=== PATIENT | female | born 1950 | race African-American/Black ===

== ENCOUNTER 2019-03-17 08:28 | Emergency (ER) | payer MEDICARE, OTHER ==
[~2019-03-17] VITALS: Ht 170.2 cm; Wt 82.0 kg
[~2019-03-17 08:28] MED LIST: AMLO5TAB88; ASPI-518 PO; BENA20TA10 PO; ESOM40CA PO; LOSA100T3; LOSA100T32; METO200T48 PO; OMEP20CA14; [UNRECOGNIZED DRUG - CODE] PO
[2019-03-17] MEDS ORDERED: KETOROLAC 60MG/2ML VIAL IM ONE (09:30)
[2019-03-17 11:22] VITALS: BP 150/80
== END 2019-03-17 11:23 | disposition home or self-care (01) ==
LOC: ER 08:28
DX: M79.675 Pain in left toe(s) (principal); Z91.018 Allergy to other foods; Z88.2 Allergy status to sulfonamides; Z79.899 Other long term (current) drug therapy; Z90.49 Acquired absence of other specified parts of digestive tract; Z90.710 Acquired absence of both cervix and uterus
CPT/HCPCS: 73630; 96372; 99283; J1885

== ENCOUNTER 2019-03-29 12:26 | Emergency (ER) | payer MEDICARE, OTHER ==
[~2019-03-29] VITALS: Ht 167.6 cm; Wt 81.0 kg
[2019-03-29 12:50] VITALS: BP 142/81
[2019-03-29] MEDS ORDERED: IBUPROFEN 600MG TABLET PO ONE (14:30)
== END 2019-03-29 16:09 | disposition home or self-care (01) ==
LOC: ER 12:26
DX: M79.675 Pain in left toe(s) (principal); I10 Essential (primary) hypertension; Z90.49 Acquired absence of other specified parts of digestive tract; Z90.710 Acquired absence of both cervix and uterus; Z79.82 Long term (current) use of aspirin; Z79.899 Other long term (current) drug therapy; Z88.2 Allergy status to sulfonamides
CPT/HCPCS: 73630; 99283

== ENCOUNTER 2020-02-11 14:23 | Emergency (ER) | payer MEDICARE, MEDICAID ==
[~2020-02-11] VITALS: Ht 170.2 cm; Wt 86.0 kg
[2020-02-11 18:48] VITALS: BP 143/81
== END 2020-02-11 18:50 | disposition home or self-care (01) ==
LOC: ER 14:40
DX: R07.89 Other chest pain (principal); I10 Essential (primary) hypertension; Z87.442 Personal history of urinary calculi; Z90.49 Acquired absence of other specified parts of digestive tract; Z90.710 Acquired absence of both cervix and uterus; Z88.2 Allergy status to sulfonamides; Z91.018 Allergy to other foods; Z79.899 Other long term (current) drug therapy
CPT/HCPCS: 99281; 99283

== ENCOUNTER 2021-04-30 15:06 | Emergency (ER) | payer MEDICARE, MEDICAID ==
[~2021-04-30] VITALS: Ht 170.2 cm; Wt 100.0 kg
[2021-04-30 15:10] VITALS: BP 134/105
== END 2021-04-30 21:45 | disposition left against medical advice (07) ==
LOC: ER 15:06
DX: Z53.21 Procedure and treatment not carried out due to patient leaving prior to being seen by health care provider (principal)
CPT/HCPCS: 93005; 99283

== ENCOUNTER 2021-08-11 11:51 | Emergency (ER) | payer MEDICARE, MEDICAID ==
[~2021-08-11] VITALS: Ht 167.6 cm; Wt 77.0 kg
[~2021-08-11 11:51] MED LIST changes: +BENA-8 PO; -BENA20TA10 PO
[2021-08-11 12:06] VITALS: BP 146/73
[2021-08-11] MEDS ORDERED: SODIUM CHLORIDE 0.9% 1,000 ML IV ONE (14:15)
[2021-08-11] MEDS ORDERED: MECLIZINE 25MG TABLET PO ONE (14:15)
[2021-08-11 14:27] LABS: HEMATOCRIT. 38.4 % (36.0-48.0); HEMOGLOBIN. 12.9 g/dL (12.0-16.0); MEAN CORPUSCULAR HEMOGLOBIN 30.5 pg (28.0-32.0); MEAN CORPUSCULAR VOLUME 90.8 fL (81.0-99.0); MEAN PLATELET VOLUME 10.9 fl (7.4-10.4); PLATELET 109 x1000/uL (130-400); RED BLOOD CELL COUNT 4.23 mill/uL (4.2-5.4); RED CELL DISTRIBUTION WIDTH 13.3 % (11.6-14.6)
[2021-08-11 14:36] LABS: CHLORIDE 104 mEq/L (98-107)
[2021-08-11 15:07] LABS: PLATELET ESTIMATE DECREASED
[2021-08-11] MEDS ORDERED: NIRM1TAB PO (18:01)
== END 2021-08-11 19:05 | disposition home or self-care (01) ==
LOC: ER 11:51
DX: U07.1 COVID-19 (principal); R42 Dizziness and giddiness; I10 Essential (primary) hypertension; M19.90 Unspecified osteoarthritis, unspecified site; K76.9 Liver disease, unspecified; Z90.49 Acquired absence of other specified parts of digestive tract; Z79.82 Long term (current) use of aspirin; Z91.014 Allergy to mammalian meats; Z88.2 Allergy status to sulfonamides
CPT/HCPCS: 36415; 70450; 71045; 80053; 82962; 83880; 84484; 85025; 87426; 93005; 96360; 99285; C9803; J7030; J8597

== ENCOUNTER 2021-09-09 14:40 | Emergency (ER) | payer MEDICARE, MEDICAID ==
[~2021-09-09] VITALS: Ht 170.2 cm; Wt 82.0 kg
[~2021-09-09 14:40] MED LIST changes: +NIRM1TAB PO
[2021-09-09] MEDS ORDERED: ACETAMINOPHEN WITH CODEINE 300/30MG TABLET PO ONE (17:00)
[2021-09-09] MEDS ORDERED: TETRACAINE 0.5% OPHTH DROPS 4ML BOTHEYE ONE (17:15)
[2021-09-09] MEDS ORDERED: FLUORESCEIN SODIUM 1MG/STRIP BOTHEYE ONE (17:15)
[2021-09-09] MEDS ORDERED: T3 PO (18:14)
[2021-09-09] MEDS ORDERED: POLY10DR RIGHTEYE (18:14)
[2021-09-09 19:40] VITALS: BP 118/78
== END 2021-09-09 19:40 | disposition home or self-care (01) ==
LOC: ER 14:40
DX: M17.11 Unilateral primary osteoarthritis, right knee (principal); H10.021 Other mucopurulent conjunctivitis, right eye; I10 Essential (primary) hypertension; Z79.82 Long term (current) use of aspirin; Z91.018 Allergy to other foods; Z88.2 Allergy status to sulfonamides
CPT/HCPCS: 73562; 99283

== ENCOUNTER 2024-02-24 13:17 | Emergency (ER) | payer MEDICARE, MEDICAID ==
[~2024-02-24] VITALS: Ht 170.2 cm; Wt 77.0 kg
[~2024-02-24 13:17] MED LIST changes: +LOSA-415; -LOSA100T3; -LOSA100T32; +LOSA100T33; +METO200T34 PO; -METO200T48 PO; +POLY10DR RIGHTEYE; +T3 PO
[2024-02-24 13:24] VITALS: O2SAT 98
[2024-02-24] MEDS: ACETAMINOPHEN 325MG TABLET PO ONE (15:00)
[2024-02-24] MEDS ORDERED: ONDANSETRON 4MG ODT PO ONE (15:15)
[2024-02-24] MEDS ORDERED: ACETAMINOPHEN 325MG TABLET PO ONE (15:15)
[2024-02-24] MEDS: LIDOCAINE 5% PATCH TOP SCH (17:00)
[2024-02-24] MEDS: ACETAMINOPHEN 325MG TABLET PO NR (17:02)
[2024-02-24] MEDS ORDERED: TOPUD MT (17:43)
[2024-02-24] MEDS ORDERED: LIDO700A15 TP (17:43)
[2024-02-24 18:24] VITALS: BP 143/78; PULSE 67; RESP 16; TEMP 37.11408; O2SAT 99
== END 2024-02-24 18:32 | disposition home or self-care (01) ==
LOC: ER 13:36
DX: M48.02 Spinal stenosis, cervical region (principal); M48.061 Spinal stenosis, lumbar region without neurogenic claudication; I10 Essential (primary) hypertension; Z79.82 Long term (current) use of aspirin; Z79.899 Other long term (current) drug therapy; Z88.2 Allergy status to sulfonamides
CPT/HCPCS: 72131; 73030; 73502; 99284

== ENCOUNTER 2024-07-28 13:49 | Emergency (ER) | payer MEDICARE, MEDICAID ==
[~2024-07-28] VITALS: Ht 165.1 cm; Wt 87.0 kg
[~2024-07-28 13:49] MED LIST changes: +LIDO-53 TP; +TOPUD MT
[2024-07-28 14:09] VITALS: TEMP 36.8; O2SAT 100
[2024-07-28] MEDS ORDERED: KETOROLAC 30MG/ML VIAL IM ONE (16:15)
[2024-07-28 16:52] LABS: BASOPHILS % 0.7 % (0.0-2.0); EOSINOPHILS % 2.5 % (0.0-5.0); HEMATOCRIT. 36.1 % (36.0-48.0); HEMOGLOBIN. 11.8 g/dL (12.0-16.0); LYMPHOCYTES % 40.1 % (20.0-50.0); MEAN CORPUSCULAR HEMOGLOBIN 30.4 pg (28.0-32.0); MEAN CORPUSCULAR HGB CONC 32.7 g/dL (31.0-37.0); MEAN CORPUSCULAR VOLUME 93.1 fL (81.0-99.0); MEAN PLATELET VOLUME 10.4 fl (7.4-10.4); MONOCYTES % 8.6 % (2.0-8.0); NEUTROPHILS % 48.1 % (40.0-76.0); PLATELET 134 x1000/uL (130-400); RED BLOOD CELL COUNT 3.88 mill/uL (4.2-5.4); RED CELL DISTRIBUTION WIDTH 13.4 % (11.6-14.6); WHITE BLOOD COUNT 7.5 x1000/uL (4.5-11.0)
[2024-07-28 17:07] LABS: CHLORIDE 105 mEq/L (98-107); POTASSIUM 4.4 mEq/L (3.5-5.1); SODIUM 139 mEq/L (136-145)
[2024-07-28 17:08] LABS: CALCIUM 10.7 mg/dL (8.7-10.4); CARBON DIOXIDE 27 mEq/L (21-32)
[2024-07-28 17:13] LABS: GLUCOSE 87 mg/dL (70-105); UREA NITROGEN BLOOD 13 mg/dL (9-23)
[2024-07-28 17:15] LABS: ALANINE AMINOTRANSFERASE 22 IU/L (10-49); ALBUMIN 4.8 g/dL (3.2-4.8); ASPARTATE AMINOTRANSFERASE 25 IU/L (<34); BILIRUBIN DIRECT 0.2 mg/dL (<=3.0); BILIRUBIN TOTAL 0.8 mg/dL (0.1-1.0); PROTEIN TOTAL 7.4 g/dL (6.0-8.3)
[2024-07-28 17:20] LABS: TROPONIN I HIGH SENSITIVITY < 4 ng/L (3.0-34)
[2024-07-28] MEDS: KETOROLAC 30MG/ML VIAL IM SCH (17:53)
[2024-07-28] MEDS: LIDOCAINE 5% PATCH TOP SCH (17:53)
[2024-07-28] MEDS ORDERED: LIDO-53 TP (19:16)
[2024-07-28] MEDS ORDERED: KETO10TA2 MT (19:16)
[2024-07-28 19:29] VITALS: BP 158/83; PULSE 64; RESP 16; O2SAT 97
[2024-07-28 19:29] LABS: INR 1.1; PROTHROMBIN TIME 11.4 sec (9.6-11.0)
== END 2024-07-28 19:34 | disposition home or self-care (01) ==
LOC: ER 13:49
DX: M70.72 Other bursitis of hip, left hip (principal); I87.2 Venous insufficiency (chronic) (peripheral); I10 Essential (primary) hypertension; I44.7 Left bundle-branch block, unspecified; R00.1 Bradycardia, unspecified; Z71.3 Dietary counseling and surveillance; Z79.82 Long term (current) use of aspirin; Z79.899 Other long term (current) drug therapy; Z88.2 Allergy status to sulfonamides; Z90.49 Acquired absence of other specified parts of digestive tract; Z90.710 Acquired absence of both cervix and uterus; R60.0 Localized edema
CPT/HCPCS: 99285; 93971; 71045; 80076; 80048; 83880; 83690; 85025; 85610; 84484; 36415; 73502; 72100; 93005; 96372; J1885

== ENCOUNTER 2024-11-11 13:45 | Emergency (ER) | payer MEDICAID ==
[~2024-11-11] VITALS: Ht 160 cm; Wt 89.0 kg
[~2024-11-11 13:45] MED LIST changes: +KETO10TA2 MT
[2024-11-11 13:54] VITALS: O2SAT 99
[2024-11-11 13:57] VITALS: BP 114/54; PULSE 72; RESP 18; TEMP 37; O2SAT 100
== END 2024-11-11 17:44 | disposition left against medical advice (07) ==
LOC: ER 13:45
DX: M25.559 Pain in unspecified hip (principal); Z53.21 Procedure and treatment not carried out due to patient leaving prior to being seen by health care provider
CPT/HCPCS: 99281